=== PATIENT | male | born 1935 | race African-American/Black ===

== ENCOUNTER 2017-05-26 19:55 | Emergency (ER) | payer MEDICARE, OTHER ==
[~2017-05-26] VITALS: Ht 170.2 cm; Wt 75.0 kg
[2017-05-26 22:24] VITALS: BP 146/90
== END 2017-05-26 22:38 | disposition home or self-care (01) ==
LOC: ER 19:55
DX: T65.891A Toxic effect of other specified substances, accidental (unintentional), initial encounter (principal); Y92.89 Other specified places as the place of occurrence of the external cause
CPT/HCPCS: 99283

== ENCOUNTER 2018-07-30 12:56 | Emergency (ER) | payer OTHER ==
[~2018-07-30] VITALS: Ht 185.4 cm; Wt 80.0 kg
[2018-07-30] MEDS ORDERED: MORPHINE SULFATE 4 MG/ML CPJ (NOT FOR IM USE) IV STA (13:40)
[2018-07-30] MEDS ORDERED: SODIUM CHLORIDE 0.9% 1,000 ML IV ONE (13:40)
[2018-07-30] MEDS ORDERED: ONDANSETRON HCL 4MG/2ML INJ IV STA (13:40)
[2018-07-30] MEDS ORDERED: PIPERACILLIN/TAZ 3.375G PREMIX 50 ML IV ONE (13:45)
[2018-07-30] MEDS ORDERED: VANCOMYCIN 1 G PREMIX 200 ML IV SCH (13:45)
[2018-07-30] MEDS ORDERED: LORAZEPAM 2MG/ML CPJ IV ONE (14:00)
[2018-07-30 14:56] LABS: BASOPHILS % 0.5 % (0.0-2.0); EOSINOPHILS % 0.1 % (0.0-5.0); HEMATOCRIT. 41.2 % (42.0-52.0); HEMOGLOBIN. 13.8 g/dL (14.0-18.0); LYMPHOCYTES % 12.8 % (20.0-50.0); MEAN CORPUSCULAR HEMOGLOBIN 30.8 pg (28.0-32.0); MEAN CORPUSCULAR VOLUME 91.9 fL (80.0-94.0); MEAN PLATELET VOLUME 6.7 fl (7.4-10.4); MONOCYTES % 8.3 % (2.0-8.0); NEUTROPHILS % 78.3 % (40.0-76.0); PLATELET 274 x1000/uL (130-400); RED BLOOD CELL COUNT 4.48 mill/uL (4.7-6.1); RED CELL DISTRIBUTION WIDTH 14.1 % (11.6-14.6)
[2018-07-30 14:57] LABS: CHLORIDE 107 mEq/L (98-107)
[2018-07-30 14:59] LABS: INR 1.1; PARTIAL THROMBOPLASTIN TIME 26.5 sec (23.4-31.0); PROTHROMBIN TIME 10.9 sec (9.1-11.1)
[2018-07-30] MEDS ORDERED: KCL 10MEQ/50ML PREMIX 50 ML IV ONE (16:30)
[2018-07-30 18:56] VITALS: BP 169/87
== END 2018-07-30 18:58 | disposition short-term general hospital (02) ==
LOC: ER 12:56
DX: R65.20 Severe sepsis without septic shock (principal); L08.9 Local infection of the skin and subcutaneous tissue, unspecified; K56.609 Unspecified intestinal obstruction, unspecified as to partial versus complete obstruction; K59.31 Toxic megacolon; E87.6 Hypokalemia; G30.9 Alzheimer's disease, unspecified; F02.80 Dementia in other diseases classified elsewhere, unspecified severity, without behavioral disturbance, psychotic disturbance, mood disturbance, and anxiety; Z90.13 Acquired absence of bilateral breasts and nipples; Z85.3 Personal history of malignant neoplasm of breast
CPT/HCPCS: 36415; 71045; 74176; 80053; 83605; 83690; 83880; 84484; 85025; 85610; 85730; 87040; 93005; 93970; 96365; 96366; 96368; 96375; 99291; J2060; J2270; J2405; J2543; J3370; J7030; J3480